=== PATIENT | female | born 1955 | race African-American/Black ===

== ENCOUNTER 2019-01-28 13:27 | Emergency (ER) | payer SELFPAY ==
[~2019-01-28] VITALS: Ht 172.7 cm; Wt 82.0 kg
[2019-01-28] MEDS ORDERED: OMEP10CA4 PO (13:32)
[2019-01-28] MEDS ORDERED: FAMOTIDINE 20MG/2ML VIAL IV STA (13:40)
[2019-01-28] MEDS ORDERED: ONDANSETRON HCL 4MG/2ML INJ IV STA (13:40)
[2019-01-28] MEDS ORDERED: SODIUM CHLORIDE 0.9% 1,000 ML IV ONE ×2 (13:40→15:33)
[2019-01-28] MEDS ORDERED: MORPHINE SULFATE 4 MG/ML CPJ (NOT FOR IM USE) IV STA (13:40)
[2019-01-28 15:04] LABS: HEMOGLOBIN. 15.5 g/dL (12.0-16.0); MEAN PLATELET VOLUME 10.3 fl (7.4-10.4); PLATELET 248 x1000/uL (130-400)
[2019-01-28 15:06] LABS: PROTHROMBIN TIME 10.3 sec (9.1-11.1)
[2019-01-28 15:07] LABS: CHLORIDE 92 mEq/L (98-107)
[2019-01-28 15:12] LABS: ETHANOL BLOOD < 10 mg/dL
[2019-01-28 16:00] LABS: ATYPICAL LYMPHOCYTES 4; PLATELET ESTIMATE NORMAL
[2019-01-28 16:19] LABS: CLARITY URINE CLOUDY (CLEAR); COLOR URINE YELLOW (YELLOW); KETONES URINE 2+ (NEGATIVE); LEUKOCYTE ESTERASE URINE TRACE (NEGATIVE); NITRITE URINE NEGATIVE (NEGATIVE); OCCULT BLOOD URINE NEGATIVE (NEGATIVE); PROTEIN URINE 2+ (NEGATIVE); SPECIFIC GRAVITY URINE 1.022 (1.005-1.030)
[2019-01-28 16:29] LABS: *AMPHETAMINES SCREEN URINE NEGATIVE (NEGATIVE); *BARBITURATES SCREEN URINE NEGATIVE (NEGATIVE); *BENZODIAZEPINES SCREEN URINE NEGATIVE (NEGATIVE); *COCAINE SCREEN URINE PRESUMTIVE POSITIVE (NEGATIVE); METHADONE URINE SCREEN NEGATIVE (NEGATIVE)
[2019-01-28 16:30] LABS: CANNABINOID URINE SCREEN NEGATIVE (NEGATIVE); OPIATES URINE SCREEN NEGATIVE (NEGATIVE); PHENCYCLIDINE URINE SCREEN NEGATIVE (NEGATIVE)
[2019-01-28] MEDS ORDERED: IOHEXOL-300 100 ML BOTTLE ONE (16:34)
[2019-01-28 20:30] VITALS: BP 167/88
== END 2019-01-28 21:21 | disposition home or self-care (01) ==
LOC: ER 13:40
DX: R10.13 Epigastric pain (principal); R11.10 Vomiting, unspecified; F14.10 Cocaine abuse, uncomplicated
CPT/HCPCS: 36415; 71045; 74177; 80053; 80305; 80320; 81003; 83690; 84484; 85025; 85610; 93005; 96361; 96374; 96375; 99284; J2270; J2405; J3490; J7030; Q9967; G0480